=== PATIENT | female | born 1940 | race Caucasian/White ===

== ENCOUNTER 2016-11-21 11:14 | Day surgery (SDC) | payer MEDICARE, BC ==
[~2016-11-21 11:14] MED LIST: Brimonidine 0.2% Ophth Soln 5 ML Bottle ONE; Cataract Ophth Solution EYELF PRN; Hypromellose 2.5% Ophth Soln 15 ML Bottle EYELF PRN; Lactated Ringers 1,000 ML IV SCH; Lidocaine 1% 2 ML ONE; Lidocaine 3.5% Ophth Gel 1 ML Bottle ONE; Povidone-Iodine 5% Sterile Ophth Soln 30 ML Bottle ONE
[2016-11-21] MEDS: Proparacaine 0.5% Ophth Soln 15 ML Bottle EYELF PRN ×2 (12:05→13:15)
[2016-11-21] MEDS ORDERED: Phenylephrine 10% Ophth Soln 5 ML Bot ONE (12:25)
[2016-11-21] MEDS ORDERED: Midazolam 1 MG/ML 2 ML SDV ONE (12:59)
[2016-11-21] MEDS ORDERED: Chondroitin Sulfate/Hyaluronate Sodium Ophth Inj 0.5 ML Syringe IOCULAR ONE (13:16)
[2016-11-21] MEDS ORDERED: Lidocaine 1% PF 2 ML SDV INFILT ONE (13:16)
[2016-11-21] MEDS ORDERED: Moxifloxacin 0.5% Ophth Soln 3 ML Bottle EYELF ONE (13:17)
[2016-11-21] MEDS ORDERED: Vancomycin 500 MG SDV EYELF ONE (13:18)
[2016-11-21] MEDS ORDERED: Balanced Salt Solution Ophth Irrig 500 ML Bottle IOCULAR ONE (13:18)
[2016-11-21 15:45] VITALS: BP 122/65
--- NOTE | 2016-11-23 08:25 | OR ---
PREOPERATIVE DIAGNOSIS: Senile nuclear cataract, left eye. POSTOPERATIVE DIAGNOSIS: Pseudophakia, left eye. PROCEDURE PERFORMED: Cataract extraction with intraocular lens implantation by phacoemulsification technique, left eye. ANESTHESIA: Topical anesthesia. ESTIMATED BLOOD LOSS: None. COMPLICATIONS: None. INDICATIONS: The patient is a 76-year-old female, who was found to have a senile nuclear cataract, reducing her best corrected visual acuity. After explaining the risks, benefits, and alternatives of cataract surgery, an informed consent was obtained. DESCRIPTION OF PROCEDURE: After identifying the patient in the preoperative area, the patient was brought to the operating room. The patient was prepped and draped in a sterile fashion. A lid speculum was inserted into the eye. The microscope was brought into the field. Lidocaine gel was applied to the external surface of the eye. A paracentesis was made 3 clock hours away from the surgeon's operating hand. The anterior chamber was anesthetized with preservative-free Lidocaine. The anterior chamber was filled with Viscoat. A clear corneal incision was made at the 180-degree meridian with a 2.75mm keratome. A continuous tear circular capsulorrhexis was performed. The nucleus was hydrodissected with balanced salt solution. The nucleus was sculpted and removed from the eye using a divide and conquer technique with the phacoemulsification handpiece. The residual viscoelastic was removed with the I/A handpiece. The anterior chamber and capsular bag were filled with Amvisc. An ANKITA lens, model PCB00 with a power of 16.5 diopters and a serial number of [id number] was injected into the capsular bag. The lens was rotated completely into the capsular bag with a Sinskey hook. The residual viscoelastic was removed with the I/A handpiece. The anterior chamber was filled with balanced salt solution to a physiologic pressure. The corneal wound was closed with stromal hydration and seen to be water tight by Weck-Alissa sponge testing. The patient received a drop of Zymar and Alphagan at the end of the case. There were no complications of this case. The patient will be followed postoperatively by Dr. Kamala Hunter. SKA: 11/21/2016 13:31:04 MODL: 11/21/2016 17:41:21 /[id number]
== END 2016-11-21 14:10 | disposition home or self-care (01) ==
LOC: VM.SDS 11:14
PROVIDERS: ATTEND Ophthalmology
DX: H25.12 Age-related nuclear cataract, left eye (principal); I10 Essential (primary) hypertension; J44.9 Chronic obstructive pulmonary disease, unspecified; E78.5 Hyperlipidemia, unspecified; Z96.1 Presence of intraocular lens; Z88.8 Allergy status to other drugs, medicaments and biological substances; Z91.040 Latex allergy status; Z98.890 Other specified postprocedural states; E66.9 Obesity, unspecified
CPT/HCPCS: 00142; 66984; A9270; J2250; J3370; J7120; V2632

== ENCOUNTER 2016-12-19 10:48 | Day surgery (SDC) | payer MEDICARE, BC ==
[~2016-12-19 10:48] MED LIST changes: -Cataract Ophth Solution EYELF PRN; +Cataract Ophth Solution EYERT PRN; -Hypromellose 2.5% Ophth Soln 15 ML Bottle EYELF PRN; +Hypromellose 2.5% Ophth Soln 15 ML Bottle EYERT PRN; -Lactated Ringers 1,000 ML IV SCH; +Sodium Chloride 0.9% 10 ML Syringe FLUSH PRN
[2016-12-19] MEDS: Proparacaine 0.5% Ophth Soln 15 ML Bottle EYERT PRN ×2 (11:22→12:56)
[2016-12-19] MEDS ORDERED: Phenylephrine 10% Ophth Soln 5 ML Bot EYERT PRN (11:30)
[2016-12-19] MEDS ORDERED: Midazolam 1 MG/ML 2 ML SDV ONE (12:45)
[2016-12-19] MEDS ORDERED: Lidocaine 1% PF 2 ML SDV INJECT ONE ×2 (12:56)
[2016-12-19] MEDS ORDERED: Moxifloxacin 0.5% Ophth Soln 3 ML Bottle EYERT ONE (12:57)
[2016-12-19] MEDS ORDERED: Vancomycin 500 MG SDV EYERT ONE (12:57)
[2016-12-19] MEDS ORDERED: Chondroitin Sulfate/Hyaluronate Sodium Ophth Inj 0.5 ML Syringe IOCULAR ONE (12:57)
[2016-12-19] MEDS ORDERED: Balanced Salt Solution Ophth Irrig 500 ML Bottle IOCULAR ONE (12:58)
[2016-12-19 13:47] VITALS: BP 136/74
--- NOTE | 2016-12-20 09:31 | OR ---
PREOPERATIVE DIAGNOSIS: Senile nuclear cataract, right eye. POSTOPERATIVE DIAGNOSIS: Pseudophakia, right eye. PROCEDURE PERFORMED: Cataract extraction with intraocular lens implantation by phacoemulsification technique, right eye. ANESTHESIA: Topical anesthesia. ESTIMATED BLOOD LOSS: None. COMPLICATIONS: None. INDICATIONS: The patient is a 76-year-old female, who was found to have a senile nuclear cataract, reducing her best corrected visual acuity. After explaining the risks, benefits, and alternatives of cataract surgery an informed consent was obtained. DESCRIPTION OF PROCEDURE: After identifying the patient in the preoperative area, the patient was brought to the operating room. The patient was prepped and draped in a sterile fashion. A lid speculum was inserted into the eye. The microscope was brought into the field. Lidocaine gel was applied to the external surface of the eye. A paracentesis was made 3 clock hours away from the surgeon's operating hand. The anterior chamber was anesthetized with preservative-free Lidocaine. The anterior chamber was filled with Viscoat. A clear corneal incision was made at the 180-degree meridian with a 2.75mm keratome. A continuous tear circular capsulorrhexis was performed. The nucleus was hydrodissected with balanced salt solution. The nucleus was sculpted and removed from the eye using a divide and conquer technique with the phacoemulsification handpiece. The residual viscoelastic was removed with the I/A handpiece. The anterior chamber and capsular bag were filled with Amvisc. An ANKITA lens, model ZCB00 with a power of 17.0 diopters and a serial number of [id number] was injected into the capsular bag. The lens was rotated completely into the capsular bag with a Sinskey hook. The residual viscoelastic was removed with the I/A handpiece. The anterior chamber was filled with balanced salt solution to a physiologic pressure. The corneal wound was closed with stromal hydration and seen to be water tight by Weck-Alissa sponge testing. The patient received a drop of Zymar and Alphagan at the end of the case. There were no complications of this case. The patient will be followed postoperatively by Dr. Kamala Hunter. SKA: 12/19/2016 15:09:12 MODL: 12/19/2016 22:20:48 /[id number]
== END 2016-12-19 13:49 | disposition home or self-care (01) ==
LOC: VM.SDS 10:48
PROVIDERS: ATTEND Ophthalmology
DX: Z96.1 Presence of intraocular lens (principal); I10 Essential (primary) hypertension; J44.9 Chronic obstructive pulmonary disease, unspecified; G47.33 Obstructive sleep apnea (adult) (pediatric); E66.9 Obesity, unspecified; K21.9 Gastro-esophageal reflux disease without esophagitis; Z88.8 Allergy status to other drugs, medicaments and biological substances; Z91.040 Latex allergy status; Z90.49 Acquired absence of other specified parts of digestive tract; Z90.710 Acquired absence of both cervix and uterus; Z98.890 Other specified postprocedural states; E78.00 Pure hypercholesterolemia, unspecified; Z79.82 Long term (current) use of aspirin; Z79.899 Other long term (current) drug therapy; Z96.653 Presence of artificial knee joint, bilateral
CPT/HCPCS: 00142; 66984; A9270; J2250; J3370; V2632

== ENCOUNTER 2017-08-20 07:47 | Day surgery (SDC) | payer MEDICARE, BC ==
[~2017-08-20 07:47] MED LIST changes: -Brimonidine 0.2% Ophth Soln 5 ML Bottle ONE; -Cataract Ophth Solution EYERT PRN; -Hypromellose 2.5% Ophth Soln 15 ML Bottle EYERT PRN; +Lactated Ringers 1,000 ML IV SCH; -Lidocaine 1% 2 ML ONE; -Lidocaine 3.5% Ophth Gel 1 ML Bottle ONE; -Povidone-Iodine 5% Sterile Ophth Soln 30 ML Bottle ONE; -Sodium Chloride 0.9% 10 ML Syringe FLUSH PRN
[2017-08-20] MEDS ORDERED: fentaNYL 100 MCG/2 ML SDV ONE (08:17)
[2017-08-20] MEDS ORDERED: Propofol 200 MG/20 ML SDV ONE ×2 (08:17→09:27)
[2017-08-20 12:33] VITALS: BP 96/53
[2017-08-20] MEDS ORDERED: Phenylephrine 1% 10 MG/ML SDV IV SCH (12:45)
--- NOTE | 2017-08-20 13:55 | OR ---
PREOPERATIVE DIAGNOSIS: History of polyps. POSTOPERATIVE DIAGNOSES: 1. Multiple right colonic polyps x4. 2. Significant sigmoid diverticulosis. PROCEDURE PROPOSED: Total flexible colonoscopy. PROCEDURE DONE: Total flexible colonoscopy with polypectomy x4. INDICATION: This is a 77-year-old female who has had multiple polyps removed over the years. On last examination, she had 4 polyps removed about 4 years ago. She comes in now for recommended recheck. TECHNIQUE: The patient was brought to the endoscopy suite, placed in the left lateral decubitus position. She was sedated with propofol per [employer]. The flexible video colonoscope was then passed transanally, and under visualization, advanced to the cecum. In the cecal area, she had several small polyps, each removed with cold biopsy forceps and submitted for pathologic examination, removing 3 polyps. She was found have another polyp in the transverse colon at about 60 cm, again removed with cold biopsy forceps. The remainder of the transverse descending colon was unremarkable. The sigmoid colon revealed rather extensive diverticulosis and the rectum was normal. The scope was then withdrawn. The patient tolerated procedure well. FINAL IMPRESSION: 1. Multiple right colonic polyps x4 removed. 2. Significant sigmoid diverticulosis. PLAN: She will be sent a letter with pathology report. I felt she should have a followup exam again in 3-4 years and hopefully that will be her last one. SCM: 08/20/2017 09:34:25 MODL: 08/20/2017 12:32:14 /[id number]
--- NOTE | 2017-09-10 08:17 | LETTER ---
09/09/2017 Jerry Steward RE: JERRY STEWARD : 1940 Dear Jerry: The polyps removed from your colon were considered precancerous polyps, known as tubular adenomas. There were no worrisome findings within these polyps, but based on this finding, I feel she should consider having one more colonoscopy in 3 to 4 years just to make sure you are not forming any new polyps. If you have any further questions regarding this, feel free to call. Respectfully,
== END 2017-08-20 11:00 | disposition home or self-care (01) ==
LOC: VM.SDS 07:47
PROVIDERS: ATTEND Surgery
DX: Z12.11 Encounter for screening for malignant neoplasm of colon (principal); D12.0 Benign neoplasm of cecum; K57.30 Diverticulosis of large intestine without perforation or abscess without bleeding; I10 Essential (primary) hypertension; E66.9 Obesity, unspecified; E78.00 Pure hypercholesterolemia, unspecified; Z79.899 Other long term (current) drug therapy; J44.9 Chronic obstructive pulmonary disease, unspecified; K21.9 Gastro-esophageal reflux disease without esophagitis; G47.33 Obstructive sleep apnea (adult) (pediatric); Z86.010 Personal history of colon polyps; Z88.8 Allergy status to other drugs, medicaments and biological substances; Z91.040 Latex allergy status; Z68.41 Body mass index [BMI] 40.0-44.9, adult
CPT/HCPCS: 00811; 45380; J2704; J3010; J7120; 88305